=== PATIENT | female | born 1940 | race African-American/Black ===

== ENCOUNTER 2022-03-04 19:52 | Inpatient (IN) | payer MEDICARE ==
[~2022-03-04] VITALS: Ht 154.9 cm; Wt 73.0 kg
[2022-03-05 03:08] LABS: BASOPHILS % 0.9 % (0.0-2.0); EOSINOPHILS % 1.1 % (0.0-5.0); HEMATOCRIT. 42.1 % (36.0-48.0); HEMOGLOBIN. 14.2 g/dL (12.0-16.0); LYMPHOCYTES % 39.1 % (20.0-50.0); MEAN CORPUSCULAR HEMOGLOBIN 30.5 pg (28.0-32.0); MEAN CORPUSCULAR VOLUME 90.5 fL (81.0-99.0); MEAN PLATELET VOLUME 10.3 fl (7.4-10.4); MONOCYTES % 10.6 % (2.0-8.0); NEUTROPHILS % 48.3 % (40.0-76.0); PLATELET 162 x1000/uL (130-400); RED BLOOD CELL COUNT 4.66 mill/uL (4.2-5.4); RED CELL DISTRIBUTION WIDTH 15.6 % (11.6-14.6)
[2022-03-05 03:14] LABS: CHLORIDE 107 mEq/L (98-107)
[2022-03-05] MEDS ORDERED: KETOROLAC 15MG/ML VIAL IV NR (03:15)
[2022-03-05 03:21] LABS: INR 1.1; PROTHROMBIN TIME 11.4 sec (9.6-11.0)
[2022-03-05] MEDS ORDERED: ASPIRIN 325MG EC TABLET PO ONE (03:45)
[2022-03-05] MEDS ORDERED: HYDROMORPHONE HCL/PF 1MG/ML CPJ IV PRN (05:00)
[2022-03-05] MEDS ORDERED: HYDROMORPHONE HCL/PF 2MG/ML CPJ IV PRN (05:15)
[2022-03-05] MEDS ORDERED: CEFTRIAXONE 1 G PREMIX 50 ML IV SCH (05:30)
[2022-03-05] MEDS ORDERED: AZITHROMYCIN 500 MG in DEXT 5% WATER 250 ML IV SCH (05:30)
[2022-03-05 12:00] VITALS: BP 114/83
[2022-03-05] MEDS ORDERED: LISI40TA13 MT (13:49)
[2022-03-05] MEDS ORDERED: CYAN-33 PO (13:49)
[2022-03-05] MEDS ORDERED: CHOL200074 (13:49)
[2022-03-05] MEDS ORDERED: LEVO88TA7 MT (13:49)
[2022-03-05] MEDS ORDERED: ACETAMINOPHEN 325MG TABLET PO PRN (15:30)
[2022-03-05] MEDS ORDERED: MAGNESIUM/ALUMINUM HYDROXIDE/SIMETHICONE 30ML UDC PO PRN (15:30)
[2022-03-05] MEDS ORDERED: TRAMADOL 50MG TABLET PO PRN (15:30)
[2022-03-05] MEDS ORDERED: DOCUSATE SODIUM 100MG CAPSULE PO PRN (15:30)
[2022-03-05] MEDS ORDERED: ONDANSETRON HCL 4MG/2ML INJ IV PRN (15:30)
[2022-03-05] MEDS ORDERED: GUAIFENESIN 200MG/10ML SUGAR FREE UDC PO PRN (15:30)
[2022-03-05 16:00] VITALS: BP 159/102
[2022-03-05] MEDS: LISINOPRIL 40MG TABLET PO SCH (17:25)
[2022-03-05] MEDS: LEVOTHYROXINE SODIUM 88MCG TABLET PO SCH (17:25)
[2022-03-05] MEDS: ENOXAPARIN 30MG/0.3ML SYR SUBCUT SCH (17:26)
[2022-03-05] MEDS ORDERED: NALOXONE HCL 0.4MG/ML VIAL IV PRN (19:00)
[2022-03-05 20:00] VITALS: BP 98/68
[2022-03-06] VITALS: BP 96/62
[2022-03-06 04:00] VITALS: BP 120/79
[2022-03-06 07:23] LABS: BASOPHILS % 1.2 % (0.0-2.0); EOSINOPHILS % 3.2 % (0.0-5.0); HEMATOCRIT. 39.6 % (36.0-48.0); HEMOGLOBIN. 13.5 g/dL (12.0-16.0); LYMPHOCYTES % 37.2 % (20.0-50.0); MEAN CORPUSCULAR HEMOGLOBIN 30.8 pg (28.0-32.0); MEAN CORPUSCULAR VOLUME 89.9 fL (81.0-99.0); MONOCYTES % 10.4 % (2.0-8.0); RED BLOOD CELL COUNT 4.41 mill/uL (4.2-5.4); RED CELL DISTRIBUTION WIDTH 14.9 % (11.6-14.6)
[2022-03-06 08:00] VITALS: BP 125/90
[2022-03-06 08:50] LABS: MEAN PLATELET VOLUME 10.1 fl (7.4-10.4)
[2022-03-06 08:51] LABS: PLATELET 136 x1000/uL (130-400)
[2022-03-06] MEDS ORDERED: LISINOPRIL 40MG TABLET PO SCH (09:00)
[2022-03-06] MEDS: LEVOTHYROXINE SODIUM 88MCG TABLET PO SCH (09:13)
[2022-03-06] MEDS: ASPIRIN 81MG EC TABLET PO SCH (09:14)
[2022-03-06] MEDS: LISINOPRIL 40MG TABLET PO SCH (09:15)
[2022-03-06 12:00] VITALS: BP 126/88
[2022-03-06 16:00] VITALS: BP_SYST 110; BP_DIAS 84; BP_DIAS 86
[2022-03-06 16:14] LABS: CHLORIDE 109 mEq/L (98-107)
[2022-03-06 16:33] LABS: HDL CHOLESTEROL 43 mg/dL (40-59); LDL CHOLESTEROL 73 mg/dL (5-100)
[2022-03-06] MEDS: ENOXAPARIN 30MG/0.3ML SYR SUBCUT SCH (16:35)
[2022-03-06 20:00] VITALS: BP 120/85
[2022-03-07] VITALS: BP 105/81
[2022-03-07 04:00] VITALS: BP 109/85
[2022-03-07 08:00] VITALS: BP_SYST 124; BP_SYST 14; BP_DIAS 91
[2022-03-07] MEDS: ASPIRIN 81MG EC TABLET PO SCH (09:21)
[2022-03-07] MEDS: LEVOTHYROXINE SODIUM 88MCG TABLET PO SCH (09:21)
[2022-03-07] MEDS: LISINOPRIL 40MG TABLET PO SCH (09:21)
[2022-03-07 10:32] VITALS: BP 124/91
== END 2022-03-07 12:20 | disposition home health service (06) | DRG 391 ==
LOC: ER 19:52 → EDBEDREQ 03-05 04:13 → MICUSO 03-05 05:21 → 7WST 03-05 11:35
PROVIDERS: ADMIT Hospitalist; ATTEND Hospitalist
DX: R10.11 Right upper quadrant pain (principal); I50.41 Acute combined systolic (congestive) and diastolic (congestive) heart failure; E44.1 Mild protein-calorie malnutrition; I24.8 Other forms of acute ischemic heart disease; I11.0 Hypertensive heart disease with heart failure; F03.90 Unspecified dementia, unspecified severity, without behavioral disturbance, psychotic disturbance, mood disturbance, and anxiety; E03.9 Hypothyroidism, unspecified; Z79.899 Other long term (current) drug therapy; Z68.30 Body mass index [BMI] 30.0-30.9, adult
CPT/HCPCS: 36415; 71045; 74176; 80053; 80061; 83605; 84484; 85025; 93005; 93306; 93970; 99285; J0456; J0696; J1170; J1650; J1885; J7060